=== PATIENT | male | born 1955 | race Two or more races ===

== ENCOUNTER 2018-10-02 11:31 | Emergency (ER) | payer OTHER ==
[~2018-10-02] VITALS: Ht 180.3 cm; Wt 130.2 kg
[2018-10-02 11:31] VITALS: BP 146/95
== END 2018-10-02 12:58 | disposition home or self-care (01) ==
LOC: ER 11:37
DX: S93.492A Sprain of other ligament of left ankle, initial encounter (principal); M25.562 Pain in left knee; I48.91 Unspecified atrial fibrillation; I10 Essential (primary) hypertension; Z98.890 Other specified postprocedural states; Z90.49 Acquired absence of other specified parts of digestive tract; W01.0XXA Fall on same level from slipping, tripping and stumbling without subsequent striking against object, initial encounter; Y93.89 Activity, other specified; Y92.89 Other specified places as the place of occurrence of the external cause; Y99.8 Other external cause status
CPT/HCPCS: 73610-TC

== ENCOUNTER 2018-10-15 08:21 | Outpatient (CLI) | payer BC ==
[2018-10-15] MEDS ORDERED: BARIUM SULFATE SUSP 450 ML BOTTLE PO ONE (09:05)
== END 2018-10-15 23:59 | disposition home or self-care (01) ==
LOC: CT 08:21
DX: K42.9 Umbilical hernia without obstruction or gangrene (principal); K76.0 Fatty (change of) liver, not elsewhere classified; R16.0 Hepatomegaly, not elsewhere classified; I70.0 Atherosclerosis of aorta; K43.9 Ventral hernia without obstruction or gangrene; Z90.49 Acquired absence of other specified parts of digestive tract

== ENCOUNTER 2018-12-16 08:08 | Outpatient (CLI) | payer BC ==
[2018-12-16 08:46] LABS: APPEARANCE,URINE CLEAR (CLEAR); BILIRUBIN,URINE NEGATIVE (NEGATIVE); BLOOD, URINE NEGATIVE Ery/uL (NEGATIVE); COLOR,URINE YELLOW (YELLOW); KETONES,URINE NEGATIVE (NEGATIVE); LEUKOCYTE ESTERASE ,URINE NEGATIVE (NEGATIVE); NITRITE, URINE NEGATIVE (NEGATIVE); PH,URINE 6.5 (5.0-8.0); PROTEIN,URINE NEGATIVE (NEGATIVE); UGLUCOSE NEGATIVE (NEGATIVE); UROBILINOGEN,URINE 0.2 EU/dL (0.2)
[2018-12-16 08:54] LABS: BASOPHILS # (AUTO) 0.1 /CMM (0.0-0.2); BASOPHILS % (AUTO) 0.9 % (0.0-2.0); EOSINOPHILS % (AUTO) 2.5 % (0.0-6.0); HEMATOCRIT 46 % (39-51); HEMOGLOBIN 16.3 g/dL (13.5-17.5); LYMPHOCYTES # (AUTO) 1.8 /CMM (0.8-4.8); LYMPHOCYTES % (AUTO) 22.7 % (20.0-44.0); MEAN CORPUSCULAR HGB CONC 35 g/dl (31.0-36.0); MEAN CORPUSCULAR VOLUME 97 fL (80-96); MONOCYTES # (AUTO) 0.9 /CMM (0.1-1.30); MONOCYTES % (AUTO) 11.1 % (2.0-12.0); NEUTROPHILS # (AUTO) 5.1 /CMM (1.8-8.9); NEUTROPHILS % (AUTO) 62.8 % (43.0-81.0); PLATELET COUNT (AUTO) 242 /CMM (150-450); RED BLOOD CELL COUNT(AUTO) 4.76 MIL/uL (4.5-6.0); WHITE BLOOD COUNT (AUTO) 8.1 K/uL (4.3-11.0)
[2018-12-16 09:18] LABS: ALBUMIN 3.9 g/dL (3.4-5.0); BILIRUBIN,TOTAL 0.8 mg/dL (0.2-1.0); CALCIUM, SERUM 9.1 mg/dL (8.5-10.1); CREATININE 1.3 mg/dL (0.6-1.3); POTASSIUM 4.3 mmol/L (3.5-5.1); TOTAL PROTEIN, SERUM 7.3 g/dL (6.4-8.2)
[2018-12-16 09:31] LABS: PROSTATE SPECIFIC ANTIGEN SCR 1.84 ng/mL (0.00-4.00); THYROID STIMULATING HORMONE 2.447 uIU/mL (0.358-3.74)
== END 2018-12-16 23:59 | disposition home or self-care (01) ==
LOC: LAB 08:08
PROVIDERS: ATTEND Internal Medicine
DX: Z00.00 Encounter for general adult medical examination without abnormal findings (principal); I10 Essential (primary) hypertension; E78.5 Hyperlipidemia, unspecified; I48.91 Unspecified atrial fibrillation; E66.9 Obesity, unspecified
CPT/HCPCS: 36415; 80053-TC; 80061-TC; 81000-TC; 84153-TC; 84439-TC; 84443-TC; 85025-TC; 86803

== ENCOUNTER → 2021-11-24 | Outpatient (CLI) | payer BC ==
[2021-11-24 12:06] LABS: BASOPHILS # (AUTO) 0.1 K/uL (0.0-0.2); BASOPHILS % (AUTO) 1.1 % (0.0-2.0); EOSINOPHILS % (AUTO) 3.5 % (0.0-6.0); HEMATOCRIT 47 % (39-51); LYMPHOCYTES # (AUTO) 1.9 K/uL (0.8-4.8); LYMPHOCYTES % (AUTO) 23.4 % (20.0-44.0); MEAN CORPUSCULAR HGB CONC 34 g/dl (31.0-36.0); MEAN CORPUSCULAR VOLUME 97 fL (80-96); MONOCYTES # (AUTO) 0.8 K/uL (0.1-1.30); MONOCYTES % (AUTO) 10.2 % (2.0-12.0); NEUTROPHILS # (AUTO) 4.9 K/uL (1.8-8.9); NEUTROPHILS % (AUTO) 61.8 % (43.0-81.0); PLATELET COUNT (AUTO) 226 K/uL (150-450); RED BLOOD CELL COUNT(AUTO) 4.83 MIL/uL (4.5-6.0); WHITE BLOOD COUNT (AUTO) 7.9 K/uL (4.3-11.0)
[2021-11-24 12:08] LABS: BILIRUBIN,URINE NEGATIVE (NEGATIVE); COLOR,URINE YELLOW (YELLOW); LEUKOCYTE ESTERASE ,URINE NEGATIVE (NEGATIVE); NITRITE, URINE NEGATIVE (NEGATIVE); PROTEIN,URINE NEGATIVE (NEGATIVE); UGLUCOSE >=1000 mg/dL (NEGATIVE)
[2021-11-24 12:29] LABS: ALBUMIN 3.7 g/dL (3.4-5.0); BILIRUBIN,TOTAL 0.9 mg/dL (0.2-1.0); CALCIUM, SERUM 8.9 mg/dL (8.5-10.1); CREATININE 1.1 mg/dL (0.6-1.3)
[2021-11-24 12:30] LABS: BACTERIA,URINE FEW /HPF (None Seen); RBC,URINE 0-2 /HPF (0-2); WBC,URINE 0-2 /HPF (0-3)
[2021-11-24 12:31] LABS: CALCIUM CARBONATE CRYSTALS,UR None Seen /HPF (None Seen); CALCIUM OXALATE CRYSTALS,UR MODERATE /HPF (None Seen); CALCIUM PHOSPHATE CRYSTALS,UR None Seen /HPF (None Seen); COARSE GRANULAR CASTS,URINE None Seen /LPF (None Seen); CYSTINE CRYSTALS,URINE None Seen /HPF (None Seen); FATTY CASTS,URINE None Seen /LPF (None Seen); FINE GRANULAR CASTS,URINE None Seen /LPF (None Seen); HYALINE CASTS, URINE None Seen /LPF (None Seen); MUCUS,URINE None Seen /LPF (None Seen); OTHER CRYSTALS,URINE None Seen /HPF (None Seen); RED BLOOD CELL CASTS,URINE None Seen /LPF (None Seen); SPERM,URINE None Seen /HPF (None Seen); TRICHOMONAS,URINE None Seen /HPF (None Seen); TRIPLE PHOSPHATE CRYSTAL,UR None Seen /HPF (None Seen); TYROSINE CRYSTAL,URINE None seen /HPF (None Seen); URIC ACID CRYSTALS,URINE None Seen /HPF (None Seen); URINE AMORPHOUS PHOSPHATES None Seen /HPF (None Seen); URINE AMORPHOUS URATE None Seen /HPF (None Seen); WAXY CASTS,URINE None Seen /LPF (None Seen); YEAST,URINE None Seen /HPF (None Seen)
== END | disposition home or self-care (01) ==
LOC: US 08:37
DX: I10 Essential (primary) hypertension (principal); E11.9 Type 2 diabetes mellitus without complications; E66.09 Other obesity due to excess calories; K46.9 Unspecified abdominal hernia without obstruction or gangrene; R14.0 Abdominal distension (gaseous); R16.0 Hepatomegaly, not elsewhere classified; Z12.5 Encounter for screening for malignant neoplasm of prostate; Z90.49 Acquired absence of other specified parts of digestive tract
CPT/HCPCS: 36415; 76700-TC; 80053-TC; 80061-TC; 81001; 85025-TC

== ENCOUNTER 2022-10-23 10:36 | Emergency (ER) | payer BC, OTHER ==
[~2022-10-23] VITALS: Ht 180.3 cm; Wt 125.2 kg
--- NOTE | 2022-10-23 11:08 | NUR ---
pt in bed. MD seen pt waiting for orders. Blood sample optained, IV placed LW 20g, flushes well no infiltration
[2022-10-23 11:15] LABS: BASOPHILS # (AUTO) 0.1 K/uL (0.0-0.2); EOSINOPHILS % (AUTO) 2.1 % (0.0-6.0); HEMATOCRIT 46 % (39-51); HEMOGLOBIN 15.6 g/dL (13.5-17.5); LYMPHOCYTES # (AUTO) 2.1 K/uL (0.8-4.8); LYMPHOCYTES % (AUTO) 24.8 % (20.0-44.0); MEAN CORPUSCULAR HGB CONC 34 g/dl (31.0-36.0); MEAN CORPUSCULAR VOLUME 96 fL (80-96); NEUTROPHILS % (AUTO) 60.1 % (43.0-81.0); PLATELET COUNT (AUTO) 236 K/uL (150-450); RED BLOOD CELL COUNT(AUTO) 4.79 MIL/uL (4.5-6.0); WHITE BLOOD COUNT (AUTO) 8.4 K/uL (4.3-11.0)
[2022-10-23 11:23] LABS: CREATININE 1.1 mg/dL (0.6-1.3); POTASSIUM 4.1 mmol/L (3.5-5.1)
[2022-10-23 11:29] LABS: ALBUMIN 3.9 g/dL (3.4-5.0); BILIRUBIN,DIRECT 0.2 mg/dL (0.0-0.2); BILIRUBIN,TOTAL 0.7 mg/dL (0.2-1.0); TOTAL PROTEIN, SERUM 7.3 g/dL (6.4-8.2)
--- NOTE | 2022-10-23 11:32 | NUR ---
PT returned from CT. Urine sample optained
--- NOTE | 2022-10-23 11:57 | NUR ---
Informed MD of pts lab work and CT results returned. No new orders at this time
[2022-10-23 12:21] LABS: BILIRUBIN,URINE NEGATIVE (NEGATIVE); COLOR,URINE YELLOW (YELLOW); LEUKOCYTE ESTERASE ,URINE NEGATIVE (NEGATIVE); NITRITE, URINE NEGATIVE (NEGATIVE); PROTEIN,URINE NEGATIVE (NEGATIVE); UGLUCOSE 3+ mg/dL (NEGATIVE); UROBILINOGEN,URINE 0.2 EU/dL (0.2)
[2022-10-23] MEDS ORDERED: IBUP-1955 PO (12:26)
[2022-10-23 12:38] LABS: BACTERIA,URINE Few /HPF (None Seen); RBC,URINE 0-2 /HPF (0-2); SQUAMOUS EPITHELIAL CELL,UR Few /HPF (None Seen); WBC,URINE 0-2 /HPF (0-3)
[2022-10-23 13:01] VITALS: BP 167/76
--- NOTE | 2022-10-23 13:02 | NUR ---
Patient discharged to home in stable condition. Written and verbal after care instructions given. Patient verbalizes understanding of instruction.IV removed. Catheter intact and site benign. Pressure and 4x4 applied to site. No bleeding noted.
== END 2022-10-23 13:04 | disposition home or self-care (01) ==
LOC: ER 10:39
DX: K57.30 Diverticulosis of large intestine without perforation or abscess without bleeding (principal); R10.31 Right lower quadrant pain; R03.0 Elevated blood-pressure reading, without diagnosis of hypertension; K76.0 Fatty (change of) liver, not elsewhere classified; R73.9 Hyperglycemia, unspecified; I10 Essential (primary) hypertension; I48.91 Unspecified atrial fibrillation; Z90.49 Acquired absence of other specified parts of digestive tract
CPT/HCPCS: 36415; 80048-TC; 80076-TC; 81001; 83690-TC; 85025-TC

== ENCOUNTER 2024-05-12 15:35 | Emergency (ER) | payer BC, OTHER ==
[~2024-05-12] VITALS: Ht 177.8 cm; Wt 120.2 kg
[~2024-05-12 15:35] MED LIST: IBUP-1955 PO
[2024-05-12 15:45] VITALS: BP 157/90; TEMP 98.3; O2SAT 97
[2024-05-12] MEDS ORDERED: CEPH500C2 PO (17:02)
[2024-05-12] MEDS ORDERED: POLY10DR3 LEFTEYE (17:02)
== END 2024-05-12 17:11 | disposition home or self-care (01) ==
LOC: ER 16:04
DX: H01.005 Unspecified blepharitis left lower eyelid (principal); H00.035 Abscess of left lower eyelid; I10 Essential (primary) hypertension; I48.91 Unspecified atrial fibrillation; Z90.49 Acquired absence of other specified parts of digestive tract

== ENCOUNTER 2025-06-30 06:44 | Inpatient (IN) | payer BC, MEDICARE, OTHER ==
[~2025-06-30] VITALS: Ht 177.8 cm; Wt 115.7 kg
[~2025-06-30 06:44] MED LIST changes: +CEPH500C2 PO; +POLY10DR3 LEFTEYE
[2025-06-30 08:10] LABS: PLATELET COUNT (AUTO) 219 K/uL (150-450); RED BLOOD CELL COUNT(AUTO) 4.46 MIL/uL (4.5-6.0); RED CELL DISTRIBUTION WIDTH 14.0 % (11.5-15.0); WHITE BLOOD COUNT (AUTO) 8.7 K/uL (4.3-11.0)
[2025-06-30 08:55] LABS: SODIUM SERUM 136 mmol/L (136-145)
[2025-06-30 09:01] LABS: CALCIUM, SERUM 9.4 mg/dL (8.5-10.1); CREATININE 1.2 mg/dL (0.6-1.3); NT-PRO BNP 3270 pg/mL (0-125); UREA NITROGEN, BLOOD 24 mg/dL (7-18)
[2025-06-30] MEDS ORDERED: RIVA10TA PO (11:08)
[2025-06-30] MEDS ORDERED: SILO8CAP6 PO (11:08)
[2025-06-30] MEDS ORDERED: FURO20TA4 PO (11:08)
[2025-06-30] MEDS ORDERED: TADA5TAB13 PO (11:08)
[2025-06-30] MEDS ORDERED: POTA-10 PO (11:08)
[2025-06-30] MEDS ORDERED: METF1000 PO (11:08)
[2025-06-30] MEDS ORDERED: EMPA25TA PO (11:08)
[2025-06-30] MEDS ORDERED: METO100T14 PO (11:08)
[2025-06-30 11:23] LABS: PHOSPHORUS 4.2 mg/dL (2.5-4.9)
[2025-06-30] MEDS: METOPROLOL TARTRATE 50 MG TABLET PO SCH (11:24)
[2025-06-30 11:30] VITALS: BP 115/61; TEMP 98.2; O2SAT 96
[2025-06-30] MEDS ORDERED: MAGNESIUM HYDROXIDE 30 ML UDC PO PRN (11:30)
[2025-06-30] MEDS ORDERED: ZOLPIDEM TARTRATE 5 MG TABLET PO PRN (11:30)
[2025-06-30] MEDS ORDERED: MAG HYDROX/AL HYDROX/SIMETH 30 ML UDC PO PRN (11:30)
[2025-06-30] MEDS ORDERED: DEXTROSE 50%-WATER 50 ML DISP.SYRIN IV PRN (11:30)
[2025-06-30] MEDS ORDERED: ACETAMINOPHEN 325 MG TABLET PO PRN (11:30)
[2025-06-30] MEDS ORDERED: Z GUARD REMEDY 4 OZ OINT TP PRN (11:30)
[2025-06-30] MEDS ORDERED: ONDANSETRON HCL/PF 4 MG/2 ML VIAL IVP PRN (11:30)
[2025-06-30 11:34] LABS: LDL 104.0 mg/dL (0-99)
[2025-06-30] MEDS: BLOOD SUGAR DIAGNOSTIC 1 EACH STRIP IN SCH (11:54)
[2025-06-30] MEDS: INSULIN REGULAR, HUMAN 100 UNIT/ML 3 ML VIAL SQ PRN (11:56)
[2025-06-30] MEDS ORDERED: METOPROLOL SUCCINATE 50 MG TAB.SR.24H PO SCH (12:00)
[2025-06-30] MEDS ORDERED: IV NS 0.9% 250 ML IV ONE (14:33)
[2025-06-30] MEDS ORDERED: CT SWABBABLE VALVE TRANS SET 1 EA INFUS.SET MC ONE (14:33)
[2025-06-30] MEDS ORDERED: IOHEXOL-350 100 ML VIAL IV ONE (14:33)
[2025-06-30] MEDS: METOPROLOL TARTRATE INJ 5 MG/5 ML AMPUL IVP PRN (14:40)
[2025-06-30] MEDS ORDERED: METOPROLOL TARTRATE INJ 5 MG/5 ML AMPUL ONE (14:46)
[2025-06-30] MEDS ORDERED: NITROGLYCERIN 0.4 MG/TAB BOTTLE ONE (14:46)
[2025-06-30] MEDS: NITROGLYCERIN 0.4 MG/TAB BOTTLE SL ONE (14:54)
[2025-06-30 16:00] VITALS: BP 111/78; TEMP 98.1; O2SAT 96
[2025-06-30 16:30] VITALS: BP_SYST 106; BP_SYST 114; BP_SYST 99; BP_DIAS 63; BP_DIAS 67; BP_DIAS 70; TEMP 97.8; O2SAT 96
[2025-06-30] MEDS: RIVAROXABAN 10 MG TABLET PO SCH (17:02)
[2025-06-30 18:59] LABS: ASPARTATE AMINOTRANSFERASE 20.0 U/L (15-37); CALCIUM, SERUM 9.2 mg/dL (8.5-10.1); CREATININE 1.3 mg/dL (0.6-1.3); SODIUM SERUM 137.0 mmol/L (136-145); TOTAL PROTEIN, SERUM 6.5 g/dL (6.4-8.2); UREA NITROGEN, BLOOD 24.0 mg/dL (7-18)
[2025-06-30 20:00] VITALS: BP 111/77; TEMP 98.4; O2SAT 97
[2025-07-01] VITALS: BP 103/54; TEMP 98.2; O2SAT 97
[2025-07-01 04:00] VITALS: BP 152/75; TEMP 98.2; O2SAT 98
[2025-07-01 07:38] LABS: PLATELET COUNT (AUTO) 206 K/uL (150-450); RED BLOOD CELL COUNT(AUTO) 4.28 MIL/uL (4.5-6.0); RED CELL DISTRIBUTION WIDTH 13.7 % (11.5-15.0); WHITE BLOOD COUNT (AUTO) 7.8 K/uL (4.3-11.0)
[2025-07-01 08:00] VITALS: BP 132/83; TEMP 97.9; O2SAT 98
[2025-07-01 08:05] LABS: CALCIUM, SERUM 8.8 mg/dL (8.5-10.1); CREATININE 1.2 mg/dL (0.6-1.3); PHOSPHORUS 4.2 mg/dL (2.5-4.9); SODIUM SERUM 136.0 mmol/L (136-145); UREA NITROGEN, BLOOD 22.0 mg/dL (7-18)
[2025-07-01 16:00] VITALS: BP 141/83; TEMP 97.3; O2SAT 96
[2025-07-01 20:00] VITALS: BP_SYST 156; BP_DIAS 73; BP_DIAS 93; TEMP 98.1; O2SAT 96
[2025-07-02] VITALS: BP 114/69; TEMP 97.7; O2SAT 98
[2025-07-02 04:00] VITALS: BP 144/93; TEMP 97.9; O2SAT 96
[2025-07-02 06:54] LABS: PLATELET COUNT (AUTO) 196 K/uL (150-450); RED BLOOD CELL COUNT(AUTO) 4.75 MIL/uL (4.5-6.0); RED CELL DISTRIBUTION WIDTH 13.9 % (11.5-15.0); WHITE BLOOD COUNT (AUTO) 7.4 K/uL (4.3-11.0)
[2025-07-02 06:59] LABS: INR 1.05 (0.91-1.10)
[2025-07-02 07:03] LABS: SODIUM SERUM 134.0 mmol/L (136-145)
[2025-07-02] MEDS ORDERED: IODIXANOL 150 ML IV ONE ×2 (07:15→08:36)
[2025-07-02 07:21] LABS: CALCIUM, SERUM 8.8 mg/dL (8.5-10.1); CREATININE 1.1 mg/dL (0.6-1.3); UREA NITROGEN, BLOOD 25.0 mg/dL (7-18)
[2025-07-02 08:00] VITALS: BP 138/77; TEMP 99; O2SAT 97
[2025-07-02] MEDS ORDERED: IV SET PRIMARY PUMP SET 1 EA INFUS.SET MC ONE (09:23)
[2025-07-02] MEDS ORDERED: IV NS 0.9% 1,000 ML ONE (09:23)
[2025-07-02] MEDS ORDERED: LIDOCAINE HCL/MPF 1% 30 ML VIAL IJ ONE (09:24)
[2025-07-02] MEDS ORDERED: MIDAZOLAM HCL 2 MG/2ML VIAL ONE (10:09)
[2025-07-02] MEDS ORDERED: FENTANYL PF 100MCG/2ML AMPUL ONE (10:09)
[2025-07-02 11:14] VITALS: BP 112/75; O2SAT 96
[2025-07-02 12:51] VITALS: BP 132/78; TEMP 97.6; O2SAT 98
[2025-07-02 18:37] VITALS: BP 104/65
== END 2025-07-02 19:15 | disposition home or self-care (01) | DRG 287 ==
LOC: ER 06:51 → TELE 09:03
PROC: 4A023N7 Measurement of Cardiac Sampling and Pressure, Left Heart, Percutaneous Approach (ICD-10-PCS; principal; 2025-07-02)
PROC: B211YZZ Fluoroscopy of Multiple Coronary Arteries using Other Contrast (ICD-10-PCS; 2025-07-02)
PROC: B215YZZ Fluoroscopy of Left Heart using Other Contrast (ICD-10-PCS; 2025-07-02)
DX: I25.10 Atherosclerotic heart disease of native coronary artery without angina pectoris (principal); E11.22 Type 2 diabetes mellitus with diabetic chronic kidney disease; Z79.01 Long term (current) use of anticoagulants; I13.10 Hypertensive heart and chronic kidney disease without heart failure, with stage 1 through stage 4 chronic kidney disease, or unspecified chronic kidney disease; E66.9 Obesity, unspecified; N18.9 Chronic kidney disease, unspecified; I48.0 Paroxysmal atrial fibrillation; E11.9 Type 2 diabetes mellitus without complications; E78.5 Hyperlipidemia, unspecified; Z79.84 Long term (current) use of oral hypoglycemic drugs; Z90.49 Acquired absence of other specified parts of digestive tract; Z68.36 Body mass index [BMI] 36.0-36.9, adult; Z86.73 Personal history of transient ischemic attack (TIA), and cerebral infarction without residual deficits; Z98.890 Other specified postprocedural states; Z79.899 Other long term (current) drug therapy; Z87.19 Personal history of other diseases of the digestive system
CPT/HCPCS: 36415; 71045-TC; 75574; 80048-TC; 80053-TC; 80061-TC; 82962-TC; 83735-TC; 83880; 84100-TC; 84439-TC; 84443-TC; 84484-TC; 85025-TC; 85610-TC; 86803; 87081-TC; 93307-TC; 97112-TC; 97116-TC; 97530-TC; A4223; G0378; J1644; J1815; J2250; J3010; J3490; J7030; J7050; Q9967

== ENCOUNTER 2025-08-13 10:57 | Outpatient (CLI) | payer BC, MEDICARE, OTHER ==
[~2025-08-13 10:57] MED LIST changes: -CEPH500C2 PO; +EMPA25TA PO; +FURO20TA4 PO; -IBUP-1955 PO; +METF1000 PO; +METO100T14 PO; -POLY10DR3 LEFTEYE; +POTA-10 PO; +RIVA10TA PO; +SILO8CAP6 PO; +TADA5TAB13 PO
[2025-08-16 11:59] LABS: PLATELET COUNT (AUTO) 201 K/uL (150-450); RED BLOOD CELL COUNT(AUTO) 4.97 MIL/uL (4.5-6.0); RED CELL DISTRIBUTION WIDTH 13.9 % (11.5-15.0); WHITE BLOOD COUNT (AUTO) 7.6 K/uL (4.3-11.0)
[2025-08-16 12:13] LABS: INR 1.14 (0.91-1.10)
[2025-08-16 12:15] LABS: ASPARTATE AMINOTRANSFERASE 25.0 U/L (15-37); CALCIUM, SERUM 8.7 mg/dL (8.5-10.1); CREATININE 1.2 mg/dL (0.6-1.3); SODIUM SERUM 138.0 mmol/L (136-145); TOTAL PROTEIN, SERUM 7.6 g/dL (6.4-8.2); UREA NITROGEN, BLOOD 20.0 mg/dL (7-18)
== END 2025-08-13 23:59 | disposition home or self-care (01) ==
LOC: RAD 10:57
PROVIDERS: ATTEND Internal Medicine Clinical Cardiac Electrophysiology
DX: Z01.818 Encounter for other preprocedural examination (principal)
CPT/HCPCS: 36415; 71045-TC; 80053-TC; 83735-TC; 84443-TC; 85025-TC; 85610-TC; 85730-TC